=== PATIENT | female | born 1960 | race Caucasian/White ===

== ENCOUNTER 2019-02-24 19:59 | Emergency (ER) | payer OTHER ==
[~2019-02-24] VITALS: Ht 170.2 cm; Wt 81.7 kg
[2019-02-24] MEDS ORDERED: AMOXICILLIN 50500 M1 PO (20:12)
[2019-02-24 20:35] LABS: ABSOLUTE BASOPHILS 0.1 thou/uL (0.0-0.2); ABSOLUTE EOSINOPHILS 0.1 thou/uL (0.0-0.7); ABSOLUTE LYMPHOCYTES 3.5 thou/uL (0.8-5.3); ABSOLUTE NEUTROPHILS 9.8 thou/uL (1.6-8.1); BASOPHILS 0.5 %; EOSINOPHILS 0.4 %; HEMATOCRIT 48.7 % (37.0-47.0); HEMOGLOBIN 16.9 gm/dL (12.0-15.0); LYMPHOCYTES 24.3 %; MCH 30.9 pg (26.0-34.0); MCHC 34.8 g/dL (28.0-37.0); MCV 88.8 fL (80.0-100.0); MONOCYTES 6.8 %; MPV 9.2 fl. (7.2-11.1); NUCLEATED RBCS 0 /100WBC; PLATELET COUNT* 345 thou/uL (150-400); RBC 5.48 mil/uL (4.20-5.00); WBC 14.3 thou/uL (4.0-11.0)
[2019-02-24 20:44] LABS: CREATININE 1.1 mg/dL (0.6-1.3); POTASSIUM 3.7 mmol/L (3.5-5.1)
[2019-02-24 20:55] LABS: ALBUMIN 3.9 g/dL (3.4-5.0); TOTAL BILIRUBIN 0.4 mg/dL (<0.1-1.0); TOTAL PROTEIN 7.7 g/dL (6.4-8.2)
[2019-02-24] MEDS ORDERED: BENADRYL25 MG PO (21:42)
[2019-02-24] MEDS ORDERED: PEPCID AC20 MG PO (21:42)
[2019-02-24] MEDS ORDERED: PREDNISONE 20 M20 MG PO (21:42)
[2019-02-24] MEDS ORDERED: ONDANSETRON HCL4 M2 PO (21:42)
[2019-02-24 23:28] VITALS: BP 101/57
--- NOTE | 2019-02-25 15:49 | EKG ---
[place] [address] ELECTROCARDIOGRAM REPORT Name: GWENDOLYN VYASNE Rhea Room: [facility]#: [id number] Admission: 02/24/19 Attend Phys: Discharge: 02/24/19 Date of : 58 Report #: [id number] THIS REPORT FOR: //name// [facility] ED Test Date: 2019-02-24 Test Time: 20:26:04 Pat Name: TRAV VYAS Department: Room: Gender: F Oracle Reports Developer: LATISHA : 1960 Requested By: Rosita Don Order Number: [id number] MD: Alberto Bermudez Measurements Intervals [place] Rate: 96 P: 45 FL: 155 QRS: 93 QRSD: 99 T: 75 QT: 357 QTc: 452 Interpretive Statements Sinus rhythm Borderline right axis deviation Baseline wander in lead(s) V6 No previous ECG available for comparison Electronically Signed On 02-25-2019 15:49:26 [employer] TECHNICIAN by Alberto Bermudez [email or web address] <ELECTRONICALLY SIGNED> By: Alberto Bermudez MD, [facility] 02/25/19 1549 25 25 Alberto Bermudez MD, FACC /EPI
== END 2019-02-24 23:29 | disposition home or self-care (01) ==
LOC: M.ERS 19:59
PROVIDERS: Nurse Practitioner Family
DX: T36.0X5A Adverse effect of penicillins, initial encounter (principal); R11.10 Vomiting, unspecified; F17.210 Nicotine dependence, cigarettes, uncomplicated; Z88.1 Allergy status to other antibiotic agents; Y92.89 Other specified places as the place of occurrence of the external cause